=== PATIENT | female | born 1980 | race Caucasian/White ===

== ENCOUNTER 2016-07-17 08:18 | Emergency (ER) | payer OTHER ==
[~2016-07-17] VITALS: Ht 149.9 cm; Wt 55.4 kg
[2016-07-17 08:20] VITALS: BP 105/71
[2016-07-17] MEDS ORDERED: DIPH,PERTUSS(ACELL),TET VAC/PF 0.5 ML IM-VACC ONE (09:30)
[2016-07-17] MEDS ORDERED: LIDOCAINE 1%, 20ML SQ ONE (09:30)
[2016-07-17] MEDS ORDERED: DEXAMETHASONE 4 MG/ML, 1ML PO ONE (09:30)
[2016-07-17] MEDS ORDERED: DEXAMETHASONE 4 MG/ML, 5ML ONE (09:33)
== END 2016-07-17 09:38 | disposition home or self-care (01) ==
LOC: ED 09:32
DX: J02.0 Streptococcal pharyngitis (principal); Z87.891 Personal history of nicotine dependence; Z98.51 Tubal ligation status
CPT/HCPCS: 99283; J1100

== ENCOUNTER 2018-01-18 18:36 | Emergency (ER) | payer OTHER ==
[~2018-01-18] VITALS: Ht 149.9 cm; Wt 59.5 kg
[2018-01-18 18:56] VITALS: BP 137/85
[2018-01-18] MEDS ORDERED: DIAZEPAM 5 MG TABLET ONE (20:28)
[2018-01-18] MEDS ORDERED: KETOROLAC 30 MG/1 ML ONE (20:28)
[2018-01-18] MEDS ORDERED: DIAZEPAM 5 MG TABLET PO ONE (20:30)
[2018-01-18] MEDS ORDERED: KETOROLAC 30 MG/1 ML IM ONE (20:30)
== END 2018-01-18 21:26 | disposition home or self-care (01) ==
LOC: ED 21:20
DX: S16.1XXA Strain of muscle, fascia and tendon at neck level, initial encounter (principal); S29.012A Strain of muscle and tendon of back wall of thorax, initial encounter; S39.012A Strain of muscle, fascia and tendon of lower back, initial encounter; V49.49XA Driver injured in collision with other motor vehicles in traffic accident, initial encounter; Y93.89 Activity, other specified; Y99.8 Other external cause status; Y92.89 Other specified places as the place of occurrence of the external cause; Y92.410 Unspecified street and highway as the place of occurrence of the external cause
CPT/HCPCS: 72020; 72050; 72072; 72110; 96372; 99284; J1885

== ENCOUNTER 2019-06-07 14:45 | Emergency (ER) | payer OTHER ==
[~2019-06-07] VITALS: Ht 149.9 cm; Wt 69.6 kg
[2019-06-07 14:49] VITALS: BP 128/80
--- NOTE | 2019-06-07 15:05 | NUR ---
PT HERE FOR HAVING SOB/COUGH X3 WEEKS. JUST FINISHED Z PACK PT NOT FEELING BETTER, STATES SHE FELT FEVERISH TODAY. DID NOT TAKE TEMP
== END 2019-06-07 16:39 | disposition home or self-care (01) ==
LOC: ED 15:30
DX: B34.9 Viral infection, unspecified (principal); Z20.828 Contact with and (suspected) exposure to other viral communicable diseases
CPT/HCPCS: 99282; 99283

== ENCOUNTER 2019-09-15 10:58 | Emergency (ER) | payer OTHER ==
[~2019-09-15] VITALS: Ht 149.9 cm; Wt 72.1 kg
[2019-09-15] MEDS ORDERED: PLEASE ENTER HEIGHT AND WEIGHT MC SCH (11:30)
[2019-09-15] MEDS ORDERED: SODIUM CHLORIDE FLUSH 10ML SYR IVF ONE (11:30)
--- NOTE | 2019-09-15 11:30 | NUR ---
PT HERE FOR C/O BLQ ABD PAIN. STARING THIS AM APPROX 0200. PT DENIES N/V/D. DENIES URINARY SYMPTOMS, FEVERS, COUGH.
[2019-09-15 11:51] LABS: BASOPHILS # (AUTO) 0.02 x10^3/uL (0-0.1); BASOPHILS % (AUTO) 0 % (0-1); EOSINOPHILS # (AUTO) 0.16 x10^3/uL (0-0.4); EOSINOPHILS % (AUTO) 3 % (1-7); LYMPHOCYTES % (AUTO) 36 % (22-44); MD NO; MEAN CORPUSCULAR HEMOGLOBIN 31.6 pg (27.0-34.8); MEAN CORPUSCULAR HGB CONC 34.3 g/dL (32.4-35.8); MEAN CORPUSCULAR VOLUME 92.2 fL (80-100); MEAN PLATELET VOLUME 8.6 fL (7.4-10.4); MONOCYTES # (AUTO) 0.37 x10^3/uL (0.2-0.8); MONOCYTES % (AUTO) 6 % (2-9); NEUTROPHILS # (AUTO) 3.47 x10^3/uL (1.8-6.8); NEUTROPHILS % (AUTO) 55 % (42-75); PLATELET COUNT 226 x10^3/uL (130-400); RED BLOOD COUNT 4.21 x10^6/uL (3.82-5.3)
[2019-09-15] MEDS ORDERED: HYDROcodone/APAP 5/325 TABLET PO ONE (12:00)
[2019-09-15] MEDS ORDERED: HYDROcodone/APAP 5/325 TABLET ONE (12:02)
[2019-09-15 12:04] LABS: ALANINE AMINOTRANSFERASE 35 U/L (12-78); ALBUMIN 3.6 g/dL (3.4-5.0); ANION GAP 6 mmol/L (5-15); CALCIUM 8.5 mg/dL (8.5-10.1); CHLORIDE 110 mmol/L (98-107)
[2019-09-15 12:09] LABS: ALKALINE PHOSPHATASE 62 U/L (45-117); BILIRUBIN,TOTAL 0.3 mg/dL (0.2-1.0); CREATININE 0.85 mg/dL (0.55-1.02); TOTAL PROTEIN 7.3 g/dL (6.4-8.2)
--- NOTE | 2019-09-15 12:25 | NUR ---
PT MEDICATED PER MAR, URINE SAMPLE COLLECTED AND SENT TO LAB. VSS, NAD NOTED. PT AWAITING US
[2019-09-15 12:34] VITALS: BP 127/72
[2019-09-15 13:04] LABS: MICROSCOPIC INDICATED
--- NOTE | 2019-09-15 13:04 | NUR ---
WITH REASSESSMENT-"REPORTS PAIN GREATLY IMPROVED" RATES IT A 09/22 UPDATED ON ESTIMATE POC
[2019-09-15] MEDS ORDERED: CEFDINIR 300 MG CAPSULE PO ONE (14:00)
[2019-09-15] MEDS ORDERED: CEFDINIR 300 MG CAPSULE ONE (14:29)
== END 2019-09-15 14:54 | disposition home or self-care (01) ==
LOC: ED 12:41
DX: N83.292 Other ovarian cyst, left side (principal); N30.00 Acute cystitis without hematuria; R55 Syncope and collapse; R10.9 Unspecified abdominal pain; Z98.51 Tubal ligation status
CPT/HCPCS: 36415; 76856; 80053; 81001; 83605; 84703; 85025; 87086; 99284